=== PATIENT | female | born 2000 | race Caucasian/White ===

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

== ENCOUNTER → 2022-12-29 | Outpatient (REF) | payer OTHER, MEDICARE ==
[~2022-12-29] MED LIST: PRENTAB9 PO
== END ==
LOC: M SFHCWAGY 12:54
PROVIDERS: ATTEND Obstetrics & Gynecology
DX: O09.893 Supervision of other high risk pregnancies, third trimester (principal)

== ENCOUNTER 2023-01-25 09:48 | Outpatient (CLI) | payer OTHER, MEDICARE ==
[2023-01-25] VITALS (14 sets, daily range): BP systolic 123–154; BP diastolic 66–89
[~2023-01-25] VITALS: Ht 167.6 cm; Wt 110.6 kg
[2023-01-25] MEDS ORDERED: LORA-930 PO (11:25)
[2023-01-25 11:47] LABS: HEMATOCRIT 36.5 % (36.0-47.0); HEMOGLOBIN 12.3 g/dl (12.0-15.5); MEAN CORPUSCULAR HEMOGLOBIN 28.5 pg (27.0-33.0); MEAN CORPUSCULAR HGB CONC 33.7 g/dl (32.0-36.5); MEAN CORPUSCULAR VOLUME 84.5 fl (80.0-96.0); PLATELET COUNT, AUTOMATED 237 10^3/uL (150-450); RED BLOOD COUNT 4.32 10^6/uL (4.00-5.40); WHITE BLOOD COUNT 15.5 10^3/uL (4.0-10.0)
[2023-01-25 12:09] LABS: URIC ACID 6.3 MG/DL (3.1-7.8)
[2023-01-25 12:11] LABS: LDH LACTATE DEHYDROGENASE 201 U/L (120-246)
[2023-01-25 12:12] LABS: ALT/SGPT < 9 U/L (7.0-40); AST/SGOT 11 U/L (<34); BILIRUBIN,TOTAL 0.4 MG/DL (0.3-1.2); CREATININE FOR GFR 0.51 MG/DL (0.55-1.30)
[2023-01-25] MEDS ORDERED: HOME MED LIST COMPLETE! XX SCH (12:30)
[2023-01-25 13:51] LABS: TOTAL PROTEIN,RANDOM URINE 14.4 MG/DL (0.0-14.0)
[2023-01-25 13:56] LABS: CREATININE,RANDOM URINE 110.1 MG/DL
== END 2023-01-25 15:20 | disposition home or self-care (01) ==
LOC: M LDO 09:48
PROVIDERS: ATTEND Specialist
DX: O16.3 Unspecified maternal hypertension, third trimester (principal); Z3A.39 39 weeks gestation of pregnancy; Z87.51 Personal history of pre-term labor
CPT/HCPCS: 36415; 59025; 82247; 82565; 82570; 83615; 84156; 84450; 84460; 84550; 85027; G0463

== ENCOUNTER 2023-01-28 14:03 | Inpatient (IN) | payer OTHER, MEDICARE ==
[2023-01-28] VITALS (14 sets, daily range): BP systolic 125–146; BP diastolic 72–93
[~2023-01-28] VITALS: Ht 167.6 cm; Wt 108.7 kg
[~2023-01-28 14:03] MED LIST changes: +LORA-930 PO
[2023-01-28] MEDS ORDERED: PENICILLIN G POTASSIUM 5 MU IV 5 MU in D5W MINI-BAG PLUS 100 ML IV STA ×2 (14:21→15:58)
[2023-01-28] MEDS ORDERED: LACTATED RINGER'S 1000 ML IV STA (14:21)
[2023-01-28] MEDS ORDERED: LIDOCAINE 1% MDV 20ML VIAL INFIL PRN (14:25)
[2023-01-28] MEDS ORDERED: METHYLERGONOVINE MALEATE 0.2MG/ML 1ML VIAL IM PRN (14:25)
[2023-01-28] MEDS ORDERED: OXYTOCIN DRIP 30 UNITS in IV 1 EA IV PRN (14:25)
[2023-01-28] MEDS ORDERED: OXYTOCIN INJ 10UNITS/ML 1ML VIAL IM PRN (14:25)
[2023-01-28] MEDS ORDERED: TRANEXAMIC ACID INJection 1,000 MG in NS 100 ML IV PRN (14:25)
[2023-01-28] MEDS ORDERED: CARBOPROST TROMETHAMINE 250 MCG/ML AMP IM PRN (14:25)
[2023-01-28] MEDS ORDERED: HOME MED LIST COMPLETE! XX SCH (14:55)
[2023-01-28 15:17] LABS: HEMATOCRIT 37.1 % (36.0-47.0); HEMOGLOBIN 12.2 g/dl (12.0-15.5); MEAN CORPUSCULAR HEMOGLOBIN 27.8 pg (27.0-33.0); MEAN CORPUSCULAR HGB CONC 32.9 g/dl (32.0-36.5); MEAN CORPUSCULAR VOLUME 84.5 fl (80.0-96.0); PLATELET COUNT, AUTOMATED 252 10^3/uL (150-450); RED BLOOD COUNT 4.39 10^6/uL (4.00-5.40); WHITE BLOOD COUNT 12.4 10^3/uL (4.0-10.0)
[2023-01-28 15:41] LABS: URIC ACID 6.6 MG/DL (3.1-7.8)
[2023-01-28 15:42] LABS: LDH LACTATE DEHYDROGENASE 265 U/L (120-246)
[2023-01-28 15:43] LABS: ALT/SGPT 9 U/L (7.0-40); AST/SGOT 15 U/L (<34); BILIRUBIN,TOTAL 0.3 MG/DL (0.3-1.2); CREATININE FOR GFR 0.54 MG/DL (0.55-1.30)
[2023-01-28 16:27] LABS: TOTAL PROTEIN,RANDOM URINE 50.7 MG/DL (0.0-14.0)
[2023-01-28 16:49] LABS: CREATININE,RANDOM URINE 315.6 MG/DL
[2023-01-28] MEDS ORDERED: PEN G POT 3,000,000 UNIT/50 ML 3,000,000 UNIT in IV 1 EA IV SCH (18:25)
[2023-01-28] MEDS ORDERED: OXYTOCIN DRIP 30 UNITS in IV 1 EA IV SCH (18:55)
[2023-01-28] MEDS: LR 1,000 ML IV SCH ×2 (19:00→23:36)
[2023-01-28] MEDS: PEN G POT 3,000,000 UNIT/50 ML 3,000,000 UNIT in IV 1 EA IV SCH (20:04)
[2023-01-29] VITALS (15 sets, daily range): BP systolic 133–166; BP diastolic 67–97; O2SAT 97–98
[2023-01-29] MEDS: PEN G POT 3,000,000 UNIT/50 ML 3,000,000 UNIT in IV 1 EA IV SCH (00:10)
[2023-01-29] MEDS ORDERED: ONDANSETRON 4MG 2ML VIAL IV ONE (01:00)
[2023-01-29] MEDS ORDERED: IBUPROFEN 800 MG TAB PO PRN (02:10)
[2023-01-29] MEDS ORDERED: ANUSOL HC CREAM 30GM TOP PRN (02:10)
[2023-01-29] MEDS ORDERED: IBUPROFEN 600MG TAB PO PRN (02:10)
[2023-01-29] MEDS ORDERED: ACETAMINOPHEN 500 MG TAB PO PRN (02:10)
[2023-01-29] MEDS ORDERED: RHOGAM 300MCG (1500IU) INJ IM SCH (02:10)
[2023-01-29] MEDS ORDERED: DIBUCAINE 1% OINTMENT 30GM TOP PRN (02:10)
[2023-01-29] MEDS ORDERED: MOM 30ML SUSPENSION UDC PO PRN (02:10)
[2023-01-29] MEDS ORDERED: DOCUSATE SODIUM 100MG CAPSULE PO PRN (02:10)
[2023-01-29] MEDS ORDERED: ACETAMINOPHEN TAB 650MG DOSE (2X325MG) PO PRN (02:10)
[2023-01-29] MEDS: PRENATAL VITAMINS CHEWABLE TABLET PO SCH (08:30)
[2023-01-30 06:00] VITALS: BP 137/95; O2SAT 98
[2023-01-30] MEDS: PRENATAL VITAMINS CHEWABLE TABLET PO SCH (08:10)
[2023-01-30 08:15] VITALS: BP 137/95; TEMP 97.3; O2SAT 98
[2023-01-30 18:00] VITALS: BP 138/68; O2SAT 99
[2023-01-31 06:00] VITALS: BP 152/90; O2SAT 98
[2023-01-31] MEDS: PRENATAL VITAMINS CHEWABLE TABLET PO SCH (07:51)
[2023-01-31] MEDS ORDERED: MEASLES,MUMPS,RUBELLA VACCINE INJ (MMR-II) SC.IMMUN ONE (09:00)
[2023-01-31] MEDS ORDERED: medroxyPROGESTERone ACET IM SUSP 150 MG/ML VIAL IM ONE (10:00)
[2023-01-31 10:29] VITALS: BP 150/80; O2SAT 97
[2023-01-31 10:30] VITALS: BP 142/90
== END 2023-01-31 18:05 | disposition home or self-care (01) | DRG 560 ==
LOC: M LDI 14:03 → M OBS 01-29 03:47
PROVIDERS: ADMIT Advanced Practice Midwife; ATTEND Advanced Practice Midwife
PROC: 3E033VJ Introduction of Other Hormone into Peripheral Vein, Percutaneous Approach (ICD-10-PCS; 2023-01-28)
PROC: 10E0XZZ Delivery of Products of Conception, External Approach (ICD-10-PCS; principal; 2023-01-29)
PROC: 10907ZC Drainage of Amniotic Fluid, Therapeutic from Products of Conception, Via Natural or Artificial Opening (ICD-10-PCS; 2023-01-29)
PROC: 0HQ9XZZ Repair Perineum Skin, External Approach (ICD-10-PCS; 2023-01-29)
DX: O13.4 Gestational [pregnancy-induced] hypertension without significant proteinuria, complicating childbirth (principal); O99.824 Streptococcus B carrier state complicating childbirth; Z37.0 Single live birth; Z3A.40 40 weeks gestation of pregnancy; O70.0 First degree perineal laceration during delivery; O69.1XX0 Labor and delivery complicated by cord around neck, with compression, not applicable or unspecified

== ENCOUNTER 2024-10-13 13:54 | Emergency (ER) | payer MEDICARE, OTHER ==
[~2024-10-13] VITALS: Ht 170.2 cm; Wt 118.3 kg
[2024-10-13 15:34] VITALS: BP 160/80; TEMP 97.2; O2SAT 100
== END 2024-10-13 15:35 | disposition home or self-care (01) ==
LOC: M ED 13:54 → EDBD 13:54 → M ED 15:35
DX: S63.501A Unspecified sprain of right wrist, initial encounter (principal); W22.09XA Striking against other stationary object, initial encounter; F10.10 Alcohol abuse, uncomplicated; Y92.009 Unspecified place in unspecified non-institutional (private) residence as the place of occurrence of the external cause; Y93.89 Activity, other specified; Y99.9 Unspecified external cause status; Z79.899 Other long term (current) drug therapy